=== PATIENT | female | born 1950 | race Caucasian/White ===

== ENCOUNTER 2018-09-28 08:28 | Emergency (ER) | payer OTHER, MEDICAID ==
[2018-09-28] MEDS ORDERED: NS 1,000 ML IV ONE (08:40)
[2018-09-28 08:50] LABS: PLATELET COUNT 315 10^3/uL (150-400)
--- NOTE | 2018-09-28 08:59 | EDPHY ---
H & P Stated Complaint: RLQ pain Time Seen by Provider: 09/28/18 08:31 HPI/ROS: CHIEF COMPLAINT: Abdominal pain and vomiting HISTORY OF PRESENT ILLNESS: The patient presents to the ED with acute right mid abdominal pain and vomiting that began in the middle the night. The patient reported that she felt fine yesterday. She did have some antecedent back pain prior to developing primary symptoms of severe right mid abdominal pain. The patient had a sensation that she needed to have a bowel movement. She also had a sensation that she needed to urinate. The patient has no prior history of the symptoms. The patient rates her pain is a 10/10. She reports associated retching and vomiting with her symptoms. The patient has no prior history of kidney stones. She denies additional acute complaints. REVIEW OF SYSTEMS: A comprehensive 10 point review of systems is otherwise negative aside from elements mentioned in the history of present illness. Source: Patient Exam Limitations: No limitations - Medical/Surgical History Hx Asthma: No Hx Chronic Respiratory Disease: No Hx Diabetes: No Hx Cardiac Disease: No Hx Renal Disease: No Hx Cirrhosis: No Hx Alcoholism: No Hx HIV/AIDS: No Hx Splenectomy or Spleen Trauma: No Other PMH: none reported - Social History Smoking Status: Never smoked - Physical Exam Exam: General Appearance: Alert, appears uncomfortable, retching, writhing Eyes: Pupils equal and round no pallor or injection ENT, Mouth: Mucous membranes moist Respiratory: There are no retractions, lungs are clear to auscultation Cardiovascular: Regular rate and rhythm Gastrointestinal: Tenderness to palpation right mid quadrant, significant right CVA tenderness noted on exam Neurological: 5/5 strength all 4 extremities Skin: Warm and dry, no rashes Musculoskeletal: Neck is supple nontender Extremities: symmetrical, full range of motion Constitutional: Initial Vital Signs Temperature (C) 36.4 C 09/28/18 08:28 Heart Rate 55 L 09/28/18 08:28 Respiratory Rate 18 09/28/18 08:28 Blood Pressure 160/71 H 09/28/18 08:28 O2 Sat (%) 100 09/28/18 08:28 O2 Delivery Mode Room Air O2 (L/minute) 2 Allergies/Adverse Reactions: No Known Allergies Allergy (Unverified 09/28/18 08:43) Home Medications: Medication Instructions Recorded Hydrocodone/APAP 5/325 [[place] 1 - 2 each PO Q6 PRN #20 tab 03/24/19 5/325] Ondansetron Odt [Zofran Odt] 4 mg PO Q4PRN PRN #20 tab 09/28/18 Tamsulosin HCl [Flomax] 0.4 mg PO DAILY PRN #5 cap 09/28/18 Medical Decision Making - Diagnostics Imaging Results: Imaging Impressions Abdomen/Pelvis CT 09/28/18 08:56 Impression: 1. Mild right-sided hydronephrosis secondary to a 2 mm distal right ureteral calculus about 2 cm above the UVJ. 2. Hypodense lesion left lobe liver lateral segment near the dome that is indeterminate. There are no prior imaging studies available for comparison, consider correlation with right upper quadrant ultrasound at some point. 3. Mild to moderate hiatal hernia. Attention: This CT examination is specifically designed to evaluate patients who are clinically suspected of having acute obstructive uropathy. This examination does not use radiographic contrast, and as such, provides only a limited evaluation of the abdomen, pelvis and retroperitoneum. If there is further clinical suspicion for pathological conditions other than obstructive uropathy, a complete CT evaluation of the abdomen and pelvis utilizing intravenous and oral contrast should be considered. Findings discussed with David Thompson at 10:18 hour, 09/28/2018. Right upper quadrant ultrasound: Images reviewed by myself and discussed with radiologist Dr. Mancilla. Simple cyst is noted in the liver. ED Course/Re-evaluation: ED course: Patient presents to the ED via ambulance with acute abdominal pain and vomiting. The patient received Zofran and fentanyl prior to arrival. Patient is market right CVA tenderness and right mid abdominal tenderness noted on exam. She is hemodynamically stable and neurologically intact upon arrival. The patient received additional IV fluids in the emergency department. The patient was taken for a stat noncontrast CT scan of the abdomen pelvis for further evaluation of her acute abdominal pain. Ct scan demonstrates a 2 mm distal right ureteral stone resulting in moderate hydronephrosis. Hypodensity is noted in the left liver of uncertain significance. The patient did not have a primary care provider here in [place] a follow-up ultrasound was done in the emergency department which demonstrated a simple liver cyst. The patient was treated with IV Toradol, Flomax, Dilaudid and Zofran. She had 3 serial examinations by myself over a 3 hr period. And she is feeling much better. We have given her customary aftercare instructions and return precautions. Differential Diagnosis: Differential diagnosis considered includes nephrolithiasis, pyelonephritis, appendicitis, cholecystitis, perforation, obstruction - Data Points Laboratory Results: Laboratory Results 09/28/18 08:30 09/28/18 08:30 09/28/18 09/28/18 09/28/18 08:40 08:30 08:30 WBC 10.70 10^3/uL H 10^3/uL (3.80-9.50) RBC 4.71 10^6/uL 10^6/uL (4.18-5.33) Hgb 13.8 g/dL g/dL (12.6-16.3) Hct 40.8 % % (38.0-47.0) MCV 86.6 fL fL (81.5-99.8) MCH 29.3 pg pg (27.9-34.1) MCHC 33.8 g/dL g/dL (32.4-36.7) RDW 12.4 % % (11.5-15.2) Plt Count 315 10^3/uL 10^3/uL (150-400) MPV 10.6 fL fL (8.7-11.7) Neut % (Auto) Not Reported Lymph % (Auto) Not Reported [place] % (Auto) Not Reported Eos % (Auto) Not Reported Baso % (Auto) Not Reported Nucleat RBC Rel Count Not Reported Absolute Neuts (auto) Not Reported Absolute Lymphs (auto) Not Reported Absolute Monos (auto) Not Reported Absolute Eos (auto) Not Reported Absolute Basos (auto) Not Reported Absolute Nucleated RBC Not Reported Immature Gran % Not Reported Seg Neutrophils % 43.0 % % Band Neutrophils % 0.0 % % Lymphocytes % 41.0 % % Monocytes % 9.0 % % Eosinophils % 4.0 % % Basophils % 3.0 % % Metamyelocytes % 0.0 % % Myelocytes % 0.0 % % Promyelocytes % 0.0 % % Blast Cells % 0.0 % % Immature Gran # Not Reported Absolute Seg Neuts 4.60 10^3/uL 10^3/uL (1.70-6.50) Absolute Band Neuts 0.00 10^3/uL 10^3/uL (0.00-0.70) Absolute Lymphocytes 4.39 10^3/uL H 10^3/uL (1.00-3.00) Absolute Monocytes 0.96 10^3/uL H 10^3/uL (0.30-0.80) Absolute Eosinophils 0.43 10^3/uL H 10^3/uL (0.03-0.40) Absolute Basophils 0.32 10^3/uL H 10^3/uL (0.02-0.10) Absolute Metamyelocyte 0.00 10^3/mL 10^3/mL (0.00-0.00) Absolute Myelocytes 0.00 10^3/mL 10^3/mL (0.00-0.00) Absolute Promyelocytes 0.00 10^3/uL 10^3/uL (0.00-0.00) Absolute Plasma Cells 0.00 10^3/uL 10^3/uL (0.00-0.00) Nucleated RBCs 0 /100 WBC /100 WBC (0-0) RBC/WBC/PLT Morphology NORMAL (NORMAL) Absolute Blast Cells 0.00 10^3/uL 10^3/uL (0.00-0.00) Plasma Cells % 0.0 % % Platelet Estimate ADEQUATE (ADEQ) Sodium 139 mEq/L mEq/L (135-145) Potassium 3.8 mEq/L mEq/L (3.5-5.2) Chloride 103 mEq/L mEq/L (97-110) Carbon Dioxide 22 mEq/l mEq/l (22-31) Anion Gap 14 mEq/L mEq/L (6-14) BUN 20 mg/dL mg/dL (7-23) Creatinine 0.9 mg/dL mg/dL (0.6-1.0) Estimated GFR > 60 Glucose 166 mg/dL H mg/dL (70-100) Calcium 10.0 mg/dL mg/dL (8.5-10.4) Total Bilirubin 0.4 mg/dL mg/dL (0.1-1.4) Conjugated Bilirubin 0.3 mg/dL mg/dL (0.0-0.5) Unconjugated Bilirubin 0.1 mg/dL mg/dL (0.0-1.1) AST 20 IU/L IU/L (14-46) ALT 28 IU/L IU/L (9-52) Alkaline Phosphatase 100 IU/L IU/L (38-126) Total Protein 7.4 g/dL g/dL (6.3-8.2) Albumin 4.4 g/dL g/dL (3.5-5.0) Lipase 137 IU/L IU/L (23-300) Urine Color YELLOW Urine Appearance HAZY Urine pH 5.0 (5.0-7.5) Ur Specific [place] 1.026 (1.002-1.030) Urine Protein NEGATIVE (NEGATIVE) Urine Ketones TRACE H (NEGATIVE) Urine Blood 3+ H (NEGATIVE) Urine Nitrate NEGATIVE (NEGATIVE) Urine Bilirubin NEGATIVE (NEGATIVE) Urine Urobilinogen NEGATIVE EU EU (0.2-1.0) Ur Leukocyte Esterase NEGATIVE (NEGATIVE) Urine RBC 50-182 /hpf H /hpf (0-3) Urine WBC 3-5 /hpf H /hpf (0-3) Ur Epithelial Cells TRACE /lpf /lpf (NONE-1+) Urine Bacteria 1+ /hpf H /hpf (NONE SEEN) Urine Mucus 1+ /lpf /lpf (NONE-1+) Urine Glucose NEGATIVE (NEGATIVE) Medications Given: Discontinued Medications Hydromorphone HCl (Dilaudid) 1 mg IVP EDNOW ONE Stop: 09/28/18 09:19 Last Admin: 09/28/18 09:22 Dose: Not Given Hydromorphone HCl (Dilaudid) 0.5 mg IVP EDNOW ONE Stop: 09/28/18 11:17 Last Admin: 09/28/18 11:36 Dose: 0.5 mg Sodium Chloride (Ns) 1,000 mls @ 0 mls/hr IV EDNOW ONE; Wide Open PRN Reason: Protocol Stop: 09/28/18 08:41 Last Admin: 09/28/18 09:00 Dose: 1,000 mls Ketorolac Tromethamine (Toradol) 30 mg IVP EDNOW ONE Stop: 09/28/18 09:20 Last Admin: 09/28/18 09:22 Dose: Not Given Ketorolac Tromethamine (Toradol) 30 mg IVP EDNOW ONE Stop: 09/28/18 09:20 Last Admin: 09/28/18 09:20 Dose: 30 mg Ondansetron HCl (Zofran) 4 mg IVP EDNOW ONE Stop: 03/24/19 09:19 Last Admin: 09/28/18 09:22 Dose: 4 mg Ondansetron HCl (Zofran) 4 mg IVP EDNOW ONE Stop: 09/28/18 11:17 Last Admin: 09/28/18 11:36 Dose: 4 mg Tamsulosin HCl (Flomax) 0.4 mg PO EDNOW ONE Stop: 09/28/18 10:21 Last Admin: 09/28/18 10:27 Dose: 0.4 mg Departure - Departure Disposition: Home, Routine, Self-Care Clinical Impression: Kidney stone on right side Condition: Good Instructions: Kidney Stones (ED) Additional Instructions: 1. Take Ibuprofen or Motrin 600 mg by mouth three times a day. 2. [place] as needed for severe pain 3. Flomax as directed 4. Zofran as needed for nausea 5. Strain urine as directed 6. Return to the Emergency Department for intractable pain, fever or vomiting. 7. Followup with the urologist, Dr. Ding, you have been referred to for unimproved symptoms. Referrals: Lux Ding MD [Medical Doctor] - As per Instructions Prescriptions: Hydrocodone/APAP 5/325 [[place] 5/325] 1 - 2 each PO Q6 PRN #20 tab PRN Reason: for pain Ondansetron Odt [Zofran Odt] 4 mg PO Q4PRN PRN #20 tab PRN Reason: For Nausea Tamsulosin HCl [Flomax] 0.4 mg PO DAILY PRN #5 cap PRN Reason: for pain
[2018-09-28] MEDS ORDERED: HYDROmorphONE/DILAUDID 1 MG/ML INJ IVP ONE (09:18)
[2018-09-28] MEDS ORDERED: ONDANSETRON 4 MG/2 ML VIAL IVP ONE ×2 (09:18→11:16)
[2018-09-28] MEDS ORDERED: KETOROLAC 30 MG/1 ML SDV IVP ONE ×2 (09:19)
[2018-09-28] MEDS ORDERED: KETOROLAC 30 MG/1 ML SDV ONE (09:20)
[2018-09-28] MEDS ORDERED: ONDANSETRON 4 MG/2 ML VIAL ONE (09:20)
[2018-09-28] MEDS ORDERED: TAMSULOSIN HCL 0.4 MG CAP PO ONE (10:20)
[2018-09-28] MEDS ORDERED: HYDROmorphONE/DILAUDID 2 MG/ML INJ IVP ONE (11:16)
[2018-09-28 12:04] VITALS: BP 130/72
== END 2018-09-28 12:04 | disposition home or self-care (01) ==
DX: N13.2 Hydronephrosis with renal and ureteral calculous obstruction (principal); K76.89 Other specified diseases of liver; K44.9 Diaphragmatic hernia without obstruction or gangrene; E86.9 Volume depletion, unspecified
CPT/HCPCS: 74176; 76705; 96361; 96374; 96375; 96376; 99285; J1170; J1885; J2405

== ENCOUNTER 2018-09-29 18:58 | Inpatient (IN) | payer OTHER, MEDICAID ==
--- NOTE | 2018-09-29 19:17 | EDPHY ---
H & P Time Seen by Provider: 09/29/18 19:15 HPI/ROS: Chief complaint. Abdominal pain HPI. 68-year-old female was seen yesterday in the emergency department diagnosed with right-sided hydronephrosis secondary to 2 mm distal right ureteral kidney stone. It appears she was comfortable when she was discharged. However she has not been able to keep any fluids down secondary to nausea vomiting. She continues to have right flank pain and has been unable to keep her pain medications down. Pain is in the right back right mid quadrant. She has decreased urination and some cloudy urine as well. No fever however. ROS 10 systems were reviewed and negative with the exception of the elements mentioned in the history of present illness Past Medical/Surgical History: Kidney stones Social History: Single, nonsmoker, no alcohol Smoking Status: Never smoked Physical Exam: General Appearance: Alert well-developed female mild distress vital signs are stable Eyes: Pupils equal and round no pallor or injection. ENT, Mouth: Mucous membranes are moist. Respiratory: There are no retractions, lungs are clear to auscultation. Cardiovascular: Regular rate and rhythm. Gastrointestinal: Abdomen is soft and nontender to palpation, no masses, bowel sounds normal. Patient shows me pain right costovertebral angle and right mid abdominal pain but not worse with palpation Neurological: Awake and alert, sensory and motor exams grossly normal. Skin: Warm and dry, no rashes. Musculoskeletal: Neck is supple nontender. Extremities symmetrical, full range of motion. Psychiatric: Patient is oriented X 3, there is no agitation. Constitutional: Initial Vital Signs Temperature (C) 37.4 C 09/29/18 19:02 Heart Rate 77 09/29/18 19:02 Respiratory Rate 18 09/29/18 19:02 Blood Pressure 154/63 H 09/29/18 19:02 O2 Sat (%) 93 09/29/18 19:02 O2 Delivery Mode Nasal Cannula O2 (L/minute) 2 Allergies/Adverse Reactions: No Known Allergies Allergy (Verified 09/29/18 19:02) Home Medications: Medication Instructions Recorded Hydrocodone/APAP 5/325 [[place] 1 - 2 each PO Q6 PRN #20 tab 09/28/18 5/325] Ondansetron Odt [Zofran Odt] 4 mg PO Q4PRN PRN #20 tab 09/28/18 Tamsulosin HCl [Flomax] 0.4 mg PO DAILY PRN #5 cap 09/28/18 Medical Decision Making - Diagnostics Imaging Results: Imaging Impressions Abdomen/Pelvis CT 09/29/18 21:12 Impression: 1. Persistent distal right ureteral calculus with increase in associated obstructive uropathy. 2. See above report for additional findings. Results called and discussed with MARA BROUSSARD M.D. on 09/29/2018 at 22:25. Noncontrast abdominal and pelvis CT shows the continuing 2 mm stone about 1 cm proximal to the UVJ. Significant hydronephrosis and edema in the perinephric fat. Procedures: IV normal saline. Zofran and Toradol IV ED Course/Re-evaluation: 9:00 p.m. shaking chills nausea increased pain right flank. Tachycardic but no fever. Dilaudid, Phenergan IV. CT ordered. Creatinine is increased from 0.9 yesterday to 1.3 today On re-evaluation pain shins pain is not well controlled. She is given IV Dilaudid and she continues to be quite nauseated so is given IV Phenergan Re-evaluation again at 10:30 p.m. Patient is stable but continuing to have pain. No longer having nausea or vomiting. I consulted discussed the case with Dr. Jewell, hospitalist, who agrees to the admission Differential Diagnosis: 2 mm kidney stone with worsening hydronephrosis. Also worsening renal function going from creatinine yesterday of 0.9-1.3 today. - Data Points Laboratory Results: Laboratory Results 09/29/18 19:15 09/29/18 19:15 09/29/18 09/29/18 19:15 19:15 WBC 10.88 10^3/uL H 10^3/uL (3.80-9.50) RBC 4.31 10^6/uL 10^6/uL (4.18-5.33) Hgb 12.7 g/dL g/dL (12.6-16.3) Hct 39.4 % % (38.0-47.0) MCV 91.4 fL fL (81.5-99.8) MCH 29.5 pg pg (27.9-34.1) MCHC 32.2 g/dL L g/dL (32.4-36.7) RDW 12.7 % % (11.5-15.2) Plt Count 242 10^3/uL 10^3/uL (150-400) MPV 10.1 fL fL (8.7-11.7) Neut % (Auto) 77.5 % H % (39.3-74.2) Lymph % (Auto) 17.6 % % (15.0-45.0) [place] % (Auto) 4.2 % L % (4.5-13.0) Eos % (Auto) 0.1 % L % (0.6-7.6) Baso % (Auto) 0.3 % % (0.3-1.7) Nucleat RBC Rel Count 0.0 % % (0.0-0.2) Absolute Neuts (auto) 8.43 10^3/uL H 10^3/uL (1.70-6.50) Absolute Lymphs (auto) 1.92 10^3/uL 10^3/uL (1.00-3.00) Absolute Monos (auto) 0.46 10^3/uL 10^3/uL (0.30-0.80) Absolute Eos (auto) 0.01 10^3/uL L 10^3/uL (0.03-0.40) Absolute Basos (auto) 0.03 10^3/uL 10^3/uL (0.02-0.10) Absolute Nucleated RBC 0.00 10^3/uL 10^3/uL (0-0.01) Immature Gran % 0.3 % % (0.0-1.1) Immature Gran # 0.03 10^3/uL 10^3/uL (0.00-0.10) Sodium 133 mEq/L L mEq/L (135-145) Potassium 4.0 mEq/L mEq/L (3.5-5.2) Chloride 100 mEq/L mEq/L (97-110) Carbon Dioxide 23 mEq/l mEq/l (22-31) Anion Gap 10 mEq/L mEq/L (6-14) BUN 20 mg/dL mg/dL (7-23) Creatinine 1.3 mg/dL H mg/dL (0.6-1.0) Estimated GFR 41 Glucose 118 mg/dL H mg/dL (70-100) Calcium 9.3 mg/dL mg/dL (8.5-10.4) Medications Given: Discontinued Medications Hydromorphone HCl (Dilaudid) 0.5 mg IVP EDNOW ONE Stop: 09/29/18 21:13 Last Admin: 09/29/18 21:27 Dose: 0.5 mg Sodium Chloride (Ns) 1,000 mls @ 0 mls/hr IV EDNOW ONE; Wide Open PRN Reason: Protocol Stop: 09/29/18 19:23 Last Admin: 09/29/18 19:31 Dose: 1,000 mls Sodium Chloride (Ns) 1,000 mls @ 0 mls/hr IV EDNOW ONE; Wide Open PRN Reason: Protocol Stop: 09/29/18 19:23 Last Admin: 09/29/18 19:31 Dose: 1,000 mls Ketorolac Tromethamine (Toradol) 30 mg IVP EDNOW ONE Stop: 09/29/18 19:23 Last Admin: 09/29/18 19:30 Dose: 30 mg Ondansetron HCl (Zofran) 4 mg IVP EDNOW ONE Stop: 09/29/18 19:23 Last Admin: 09/29/18 19:30 Dose: 4 mg Promethazine HCl (Phenergan) 12.5 mg IVP EDNOW ONE Stop: 09/29/18 21:13 Last Admin: 09/29/18 21:26 Dose: 12.5 mg Departure - Departure Disposition: [facility] Clinical Impression: Renal colic on right side Condition: Fair
[2018-09-29] MEDS ORDERED: ONDANSETRON 4 MG/2 ML VIAL IVP ONE (19:22)
[2018-09-29] MEDS ORDERED: KETOROLAC 30 MG/1 ML SDV IVP ONE (19:22)
[2018-09-29] MEDS ORDERED: NS 1,000 ML IV ONE ×2 (19:22)
[2018-09-29 19:28] LABS: PLATELET COUNT 242 10^3/uL (150-400)
[2018-09-29] MEDS ORDERED: PROMETHAZINE HCL 25 MG/ML INJ IVP ONE (21:12)
[2018-09-29] MEDS ORDERED: HYDROmorphONE/DILAUDID 2 MG/ML INJ IVP ONE (21:12)
[2018-09-29] MEDS ORDERED: PROMETHAZINE HCL 25 MG/ML INJ IVP PRN (22:38)
[2018-09-29] MEDS ORDERED: ONDANSETRON DISINTEGRATING 4 MG TAB PO PRN (22:38)
[2018-09-29] MEDS ORDERED: HYDROmorphONE/DILAUDID 1 MG/ML INJ IVP PRN (22:38)
--- NOTE | 2018-09-30 00:15 | PDGENHP ---
History and Physical - Chief Complaint R flank pain - History of Present Illness 68 yo F presents with R flank pain. This started yesterday and she presented to the ED. Her symptoms improved with fluids and pain medication so she returned home. Today her pain persisted and was severe. She also has been unable to hydrate orally due to nausea and pain. She underwent a CT scan in the ED that demonstrated 2 mm R sided kidney stone. She denies dysuria or fever but has been having chills. She is being admitted for hydration and pain control. Case discussed with ED physician Dr. Borden; records reviewed and summarized above. History Information - Allergies/Home Medication List Allergies/Adverse Reactions: No Known Allergies Allergy (Verified 09/29/18 19:02) I have personally reviewed and updated: family history, medical history - Past Medical History no pertinent PMH - Surgical History Additional surgical history: Cyst removal - Family History Additional family history: Asked, denies - Social History Smoking Status: Never smoked Review of Systems Review of Systems: ROS: 10pt was reviewed & negative except for what was stated in HPI & below Physical Exam Physical Exam: Temp Pulse Resp BP Pulse Ox 37.0 C 80 16 118/68 99 09/30/18 00:00 09/30/18 00:00 09/30/18 00:00 09/30/18 00:00 09/30/18 00:00 Constitutional: appears nourished, uncomfortable Eyes: PERRL, EOMI Ears, Nose, Mouth, Throat: moist mucous membranes, no oral mucosal ulcers Cardiovascular: regular rate and rhythym, no murmur, rub, or gallop Respiratory: no respiratory distress, clear to auscultation Gastrointestinal: normoactive bowel sounds, soft, non-tender abdomen Skin: warm, normal color Musculoskeletal: full muscle strength, no muscle tenderness Neurologic: AAOx3, CN II-XII Intact Psychiatric: interacting appropriately, not anxious Lab Data & Imaging Review 09/29/18 19:15 09/29/18 19:15 WBC 10.88 10^3/uL (3.80-9.50) H 09/29/18 19:15 RBC 4.31 10^6/uL (4.18-5.33) 09/29/18 19:15 Hgb 12.7 g/dL (12.6-16.3) 09/29/18 19:15 Hct 39.4 % (38.0-47.0) 09/29/18 19:15 MCV 91.4 fL (81.5-99.8) 09/29/18 19:15 MCH 29.5 pg (27.9-34.1) 09/29/18 19:15 MCHC 32.2 g/dL (32.4-36.7) L 09/29/18 19:15 RDW 12.7 % (11.5-15.2) 09/29/18 19:15 Plt Count 242 10^3/uL (150-400) 09/29/18 19:15 MPV 10.1 fL (8.7-11.7) 09/29/18 19:15 Neut % (Auto) 77.5 % (39.3-74.2) H 09/29/18 19:15 Lymph % (Auto) 17.6 % (15.0-45.0) 09/29/18 19:15 [place] % (Auto) 4.2 % (4.5-13.0) L 09/29/18 19:15 Eos % (Auto) 0.1 % (0.6-7.6) L 09/29/18 19:15 Baso % (Auto) 0.3 % (0.3-1.7) 09/29/18 19:15 Nucleat RBC Rel Count 0.0 % (0.0-0.2) 09/29/18 19:15 Absolute Neuts (auto) 8.43 10^3/uL (1.70-6.50) H 09/29/18 19:15 Absolute Lymphs (auto) 1.92 10^3/uL (1.00-3.00) 09/29/18 19:15 Absolute Monos (auto) 0.46 10^3/uL (0.30-0.80) 09/29/18 19:15 Absolute Eos (auto) 0.01 10^3/uL (0.03-0.40) L 09/29/18 19:15 Absolute Basos (auto) 0.03 10^3/uL (0.02-0.10) 09/29/18 19:15 Absolute Nucleated RBC 0.00 10^3/uL (0-0.01) 03/25/19 19:15 Immature Gran % 0.3 % (0.0-1.1) 09/29/18 19:15 Immature Gran # 0.03 10^3/uL (0.00-0.10) 09/29/18 19:15 Sodium 133 mEq/L (135-145) L 09/29/18 19:15 Potassium 4.0 mEq/L (3.5-5.2) 09/29/18 19:15 Chloride 100 mEq/L (97-110) 09/29/18 19:15 Carbon Dioxide 23 mEq/l (22-31) 09/29/18 19:15 Anion Gap 10 mEq/L (6-14) 09/29/18 19:15 BUN 20 mg/dL (7-23) 09/29/18 19:15 Creatinine 1.3 mg/dL (0.6-1.0) H 09/29/18 19:15 Estimated GFR 41 09/29/18 19:15 Glucose 118 mg/dL (70-100) H 09/29/18 19:15 Calcium 9.3 mg/dL (8.5-10.4) 09/29/18 19:15 Imaging Review: Imaging Impressions Abdomen/Pelvis CT 09/29/18 21:12 Impression: 1. Persistent distal right ureteral calculus with increase in associated obstructive uropathy. 2. See above report for additional findings. Results called and discussed with MARA BORDEN M.D. on 09/29/2018 at 22:25. Assessment & Plan Assessment: 68 yo F presents with flank pain due to urolithiasis. Plan: 1. Urolithiasis - CT (personally reviewed/interpreted) demonstrates persistent distal right ureteral calculus with increase in associated obstructive uropathy. She has been unable to hydrate at home due to nausea. Stone is 2 mm so I suspect it will pass without surgical intervention. - Admit for observation - NS @ 150 mls/hr - Tamsulosin qD - Pain control, anti-emetics PRN - UA to rule out infection ordered 2. OPAL - Serum creatinine 1.3 on admission increased from normal baseline. This is likely prerenal azotemia from dehydration. - IVF - Repeat BMP in the morning 3. Hyponatremia - Mild, likely hypovolemic. - Recheck after IVF Diet - Regular Code - Full Ppx - LMWH Dispo - Admit under observation status
[2018-09-30] MEDS: ACETAMINOPHEN 325 MG TAB PO PRN ×4 (01:32→21:35)
[2018-09-30] MEDS: ONDANSETRON 4 MG/2 ML VIAL IVP PRN ×2 (01:33→05:45)
[2018-09-30] MEDS: NS 1,000 ML IV SCH ×4 (01:35→18:23)
[2018-09-30 05:44] LABS: PLATELET COUNT 139 10^3/uL (150-400)
[2018-09-30] MEDS ORDERED: NS 1,000 ML IV ONE (08:52)
[2018-09-30] MEDS: ENOXAPARIN 40 MG/0.4 ML SYR SC SCH (09:32)
[2018-09-30] MEDS: TAMSULOSIN HCL 0.4 MG CAP PO SCH (09:55)
[2018-09-30 11:14] LABS: INR 1.44 (0.83-1.16); PROTIME(PATIENT) 16.9 SEC (12.0-15.0)
--- NOTE | 2018-09-30 12:08 | ASMTCMCOM ---
CM Note CM Note Notes: 09/30/2018 Case Management Note Discussed pt during rounds this morning. Pt admitted for 2 mm right kidney stone and pain management. Per RN report, pt is septic today and on sepsis protocol. Deferred meeting pt until pt feeling better. PT deferred eval as well. Pt is employed and has friend support. PCP is Dr. Mccracken. Case Management d/c poc: to be determined. Case Management to follow. Date Signed: 09/30/2018 12:08 PM Electronically Signed By:Sherin Sheppard RN
--- NOTE | 2018-09-30 12:20 | HOSPPROG ---
Hospitalist Progress Note Assessment/Plan: The patient is a 68-year-old female who was admitted for intractable pain secondary to R sided hydronephrosis and ureterolithiasis. ASSESSMENT/PLAN: Severe sepsis SOFA score < 9 Acute UTI Acute R uretherolithisis R hydronephrosis Acute dehydration, 2/2 above OPAL, 2/2 above Hyponatremia, mild Acute metabolic/toxic encephalopathy, 2/2 above -Initiated sepsis protocol this AM. -Gave pt another bolus NS this AM, followed by maintenance IVF. -Started ceftriaxone for suspected UTI a/w stone. -Blood Cx pending. -Urine Cx pending. -Check AM labs. -Consider Urology consult if stone does not pass. It is very small and expected to pass. -Continue Flomax. -prn analgesics --Toradol preferred since pt is lethargic. VTE prophylaxis: Lovenox. Code Status: Full Status: change to inpt for > 2 midnight stay for severe sepsis, OPAL, hydronephrosis, and medical instability -- needs IVF, antibiotics, and ongoing support. [facility]___ SUBJECTIVE: Notified this AM that pt was septic -- saw pt who was febrile, tachycardic, tachypneic, altered. Pt said she felt badly but was unable to explain further. OBJECTIVE: Physical Exam: General: The patient is a female who is lethargic and in mild acute distress. HEENT: normocephalic, extraocular movements intact, conjunctivae clear. Mucous membranes very dry. Neck: trachea midline, no visible masses. CV: +S1/S2, tachy rate, RR, no MRG. Resp: unlabored, CTAB no RRW. Abd: soft and nondistended. Diffusely tender. Musculoskeletal: Normal muscle tone/bulk. Neuro: cranial nerves II - XII grossly intact. Pt unable to verbalize/ communicate. Pt unable to follow commands. Psych: unable to assess. Skin: No pallor. No petechiae. Heme/lymph: No peripheral edema at bilateral lower legs. Labs/Imaging/Other Tests: Personally reviewed/interpreted. CT abd/pelv w/o contrast: Persistent distal right ureteral calculus with increase in associated obstructive uropathy. Objective: Vital Signs Temp Pulse Resp BP Pulse Ox 39.3 C H 120 H 24 H 125/60 H 96 09/30/18 11:34 09/30/18 11:34 09/30/18 11:34 09/30/18 11:34 09/30/18 11:34 Laboratory Results 09/30/18 04:50 09/30/18 04:50 09/29/18 09/30/18 10/01/18 05:59 05:59 05:59 Intake Total 2808 Balance 2808 PT 16.9 SEC (12.0-15.0) H 09/30/18 10:30 INR 1.44 (0.83-1.16) H 09/30/18 10:30 - Time Spent With Patient Time Spent with Patient: greater than 35 minutes Time Spent with Patient: Greater than 35 minutes spent on this patients care, greater than 50% of time spent counseling, educating, and coordinating care regarding the above mentioned plan. ICD10 Worksheet Patient Problems: Problems Problem Status Onset Renal colic on right side Acute
[2018-09-30] MEDS ORDERED: KETOROLAC 30 MG/1 ML SDV IVP PRN (12:58)
--- NOTE | 2018-09-30 19:57 | PDMN ---
Medical Necessity Medical necessity: Change to IP, as of 09/30/18, per & MCG M-160; los >2 mn for ongoing management of severe sepsis w/acute UTI, R ureterolithiasis, R hydronephrosis, acute kidney injury & metabolic/toxic encephalopathy; requiring further monitoring, aggressive IVFs (150 mls/hr) & IV abx
[2018-10-01 05:10] LABS: PLATELET COUNT 95 10^3/uL (150-400)
[2018-10-01] MEDS: ENOXAPARIN 40 MG/0.4 ML SYR SC SCH (08:35)
[2018-10-01] MEDS: TAMSULOSIN HCL 0.4 MG CAP PO SCH (08:35)
[2018-10-01] MEDS: NS 1,000 ML IV SCH ×2 (14:18→21:18)
[2018-10-01] MEDS: oxyCODONE IR 5 MG TAB PO PRN ×2 (14:26→20:19)
--- NOTE | 2018-10-01 16:15 | HOSPPROG ---
Hospitalist Progress Note Assessment/Plan: Patient is a 68-year-old female who was admitted for intractable pain secondary to R sided hydronephrosis and ureterolithiasis. ASSESSMENT/PLAN: Severe sepsis SOFA score < 9 Acute UTI Acute R uretherolithisis R hydronephrosis Acute dehydration, 2/2 above OPAL, 2/2 above Hyponatremia, mild Acute metabolic/toxic encephalopathy, 2/2 above cont IV abx decrease IVF trend PC improving overal f/u cultures -Continue Flomax. VTE prophylaxis: Lovenox. Code Status: Full Status: change to inpt for > 2 midnight stay for severe sepsis, OPAL, hydronephrosis, and medical instability -- needs IVF, antibiotics, and ongoing support. Disposition: medsurg Subjective: feels somewhat better. denies cp or sob. voiding Objective: Vital Signs Temp Pulse Resp BP Pulse Ox 36.3 C 82 16 109/64 97 10/01/18 11:19 10/01/18 11:19 10/01/18 11:19 10/01/18 11:19 10/01/18 11:19 Laboratory Results 10/01/18 04:58 10/01/18 04:58 09/30/18 10/01/18 10/02/18 05:59 05:59 05:59 Intake Total 3625 Output Total 400 150 Balance 3225 -150 PT 16.9 SEC (12.0-15.0) H 09/30/18 10:30 INR 1.44 (0.83-1.16) H 09/30/18 10:30 - Physical Exam Constitutional: no apparent distress Eyes: PERRL Ears, Nose, Mouth, Throat: moist mucous membranes Cardiovascular: regular rate and rhythym, No edema Respiratory: no respiratory distress, no rales or rhonchi, clear to auscultation Gastrointestinal: normoactive bowel sounds, soft, non-tender abdomen Skin: warm Musculoskeletal: generalized weakness Neurologic: AAOx3 Psychiatric: interacting appropriately, not anxious, not encephalopathic Lymph, Heme, Immunologic: No petechiae ICD10 Worksheet Patient Problems: Problems Problem Status Onset Renal colic on right side Acute
[2018-10-01] MEDS: ONDANSETRON 4 MG/2 ML VIAL IVP PRN (20:22)
[2018-10-02 05:25] LABS: PLATELET COUNT 104 10^3/uL (150-400)
[2018-10-02] MEDS: ENOXAPARIN 40 MG/0.4 ML SYR SC SCH (08:45)
[2018-10-02] MEDS: TAMSULOSIN HCL 0.4 MG CAP PO SCH (08:45)
[2018-10-02] MEDS: ONDANSETRON 4 MG/2 ML VIAL IVP PRN ×2 (08:46→18:09)
--- NOTE | 2018-10-02 09:59 | CPEKG ---
Test Reason : chest pain Blood Pressure : / mmHG Vent. Rate : 091 BPM Atrial Rate : 091 BPM P-R Int : 144 ms QRS Dur : 082 ms QT Int : 350 ms P-R-T Axes : 057 051 020 degrees QTc Int : 431 ms Sinus rhythm Confirmed by Lux Franco ([id number]) on 10/02/2018 9:58:38 AM Referred By: Mario Jewell Confirmed By:Lux Franco
--- NOTE | 2018-10-02 13:09 | HOSPPROG ---
Hospitalist Progress Note Assessment/Plan: Patient is a 68-year-old female who was admitted for intractable pain secondary to R sided hydronephrosis and ureterolithiasis. ASSESSMENT/PLAN: Severe sepsis SOFA score < 9 Acute UTI Acute R uretherolithisis R hydronephrosis Acute dehydration, 2/2 above OPAL, 2/2 above Hyponatremia, mild Acute metabolic/toxic encephalopathy, 2/2 above cont IV abx trial off IVF PC cont to be elevated but improving, she feels significantly better f/u cultures Continue Flomax. VTE prophylaxis: Lovenox. Code Status: Full Status: cont inpt for > 2 midnight stay for severe sepsis, OPAL, hydronephrosis, and medical instability -- needs IVF, antibiotics, and ongoing support. Disposition: medsur Subjective: no cp or sob. no n/v. still with mild abd pain, feels better overall. Last fever is 09/30 at 1999 Objective: Vital Signs Temp Pulse Resp BP Pulse Ox 37.1 C 93 16 130/75 H 89 L 10/02/18 12:22 10/02/18 12:22 10/02/18 12:22 10/02/18 12:22 10/02/18 12:22 Laboratory Results 10/02/18 04:54 10/02/18 04:54 10/01/18 10/02/18 10/03/18 05:59 05:59 05:59 Intake Total 3625 2139 1700 Output Total 400 950 Balance 3225 1189 1700 PT 16.9 SEC (12.0-15.0) H 09/30/18 10:30 INR 1.44 (0.83-1.16) H 09/30/18 10:30 - Physical Exam Constitutional: no apparent distress Eyes: PERRL, EOMI Ears, Nose, Mouth, Throat: moist mucous membranes, hearing normal Cardiovascular: regular rate and rhythym, No edema Respiratory: no respiratory distress, no rales or rhonchi, clear to auscultation Gastrointestinal: normoactive bowel sounds, soft, non-tender abdomen Skin: warm Neurologic: AAOx3 Psychiatric: interacting appropriately, not anxious, not encephalopathic Lymph, Heme, Immunologic: No petechiae ICD10 Worksheet Patient Problems: Problems Problem Status Onset Renal colic on right side Acute
--- NOTE | 2018-10-02 16:09 | ASMTCMCOM ---
CM Note CM Note Notes: CM reviewed pts chart. PT has cleared pt to discharge home without any needs. CM available for changes. Plan: Independent Date Signed: 10/02/2018 04:08 PM Electronically Signed By:BRANDON Acosta
[2018-10-02] MEDS: oxyCODONE IR 5 MG TAB PO PRN (19:33)
[2018-10-03 04:50] LABS: PLATELET COUNT 129 10^3/uL (150-400)
[2018-10-03] MEDS: TAMSULOSIN HCL 0.4 MG CAP PO SCH (08:36)
[2018-10-03] MEDS: ENOXAPARIN 40 MG/0.4 ML SYR SC SCH (08:36)
[2018-10-03] MEDS ORDERED: FUROSEMIDE 20 MG/2 ML VIAL IVP ONE (12:13)
--- NOTE | 2018-10-03 15:14 | ASMTCMCOM ---
CM Note CM Note Notes: Patient plan of care reviewed in am rounds. She is a 68 year old female who passed a kidney fredi. No needs identified at present time. To get diuretic today. Plan: Dc independently tomorrow. Date Signed: 10/03/2018 03:13 PM Electronically Signed By:Mary Soares RN
--- NOTE | 2018-10-03 17:47 | HOSPPROG ---
Hospitalist Progress Note Assessment/Plan: Patient is a 68-year-old female who was admitted for intractable pain secondary to R sided hydronephrosis and ureterolithiasis. ASSESSMENT/PLAN: Severe sepsis, resolved SOFA score < 9 Acute UTI Acute R uretherolithisis, stone has vacated R hydronephrosis Acute dehydration, 2/2 above, resolved OPAL, 2/2 above, resolved Hyponatremia, mild, resolved Acute metabolic/toxic encephalopathy, 2/2 above, resoled Pedal Edema cont IV abx cont off IVF Lasix x 1 f/u cultures Continue Flomax. PT VTE prophylaxis: Lovenox. Code Status: Full Status: cont inpt Disposition: medsurg Subjective: no cp or sob. feel weak. afebrile. better overall Objective: Vital Signs Temp Pulse Resp BP Pulse Ox 36.9 C 75 16 135/68 H 95 10/03/18 15:11 10/03/18 15:11 10/03/18 15:11 10/03/18 15:11 10/03/18 15:11 Laboratory Results 10/03/18 04:25 10/02/18 04:54 10/02/18 10/03/18 10/04/18 05:59 05:59 05:59 Intake Total 2139 2500 Output Total 950 850 500 Balance 1189 1650 -500 PT 16.9 SEC (12.0-15.0) H 09/30/18 10:30 INR 1.44 (0.83-1.16) H 09/30/18 10:30 - Physical Exam Constitutional: no apparent distress Eyes: PERRL Ears, Nose, Mouth, Throat: moist mucous membranes, hearing normal Cardiovascular: regular rate and rhythym, edema Respiratory: no respiratory distress, no rales or rhonchi, clear to auscultation Gastrointestinal: normoactive bowel sounds Skin: warm Musculoskeletal: generalized weakness Neurologic: AAOx3 Psychiatric: interacting appropriately, not anxious, not encephalopathic Lymph, Heme, Immunologic: No petechiae ICD10 Worksheet Patient Problems: Problems Problem Status Onset Renal colic on right side Acute
[2018-10-04] MEDS: oxyCODONE IR 5 MG TAB PO PRN (00:13)
[2018-10-04] MEDS ORDERED: ZOLPIDEM TARTRATE 5 MG TAB PO ONE (00:26)
[2018-10-04] MEDS: TAMSULOSIN HCL 0.4 MG CAP PO SCH (08:45)
[2018-10-04] MEDS: ENOXAPARIN 40 MG/0.4 ML SYR SC SCH (08:45)
[2018-10-04 12:19] VITALS: BP 123/75
[2018-10-04] MEDS ORDERED: FUROSEMIDE 20 MG TAB PO ONE (13:24)
--- NOTE | 2018-10-04 13:30 | PDDCSUM ---
Discharge Summary Discharge Summary: HPI/Hospital course: Patient is a 68-year-old female who was admitted for intractable pain secondary to R sided hydronephrosis and ureterolithiasis. she was found to have severe sepsis and treated with IV fluids and IV abx. She eventually passed the stone. She is now significantly better. See details below DDx: Severe sepsis, resolved SOFA score < 9 Acute UTI: treated with Rocephin. Now transitioned to Omnicef x 3 more days Acute R uretherolithisis, stone has vacated R hydronephrosis Acute dehydration, 2/2 above, resolved OPAL, 2/2 above, resolved Hyponatremia, mild, resolved Acute metabolic/toxic encephalopathy, 2/2 above, resoled Pedal Edema, resolved Exam: NAD RRR CTA B MEDS: SEE MED REC F/U: WITH PCP NEXT WEEK TOTAL TIME SPENT ON D/C IS 35 MINS
--- NOTE | 2018-10-04 13:44 | ASMTLACE ---
WILLIE Length of stay for Answers: 4-6 days current admission # of Emergency department Answers: 1-2 visits in the last 6 months Score: 5 Date Signed: 10/04/2018 01:43 PM Electronically Signed By:Mary Soares RN
--- NOTE | 2018-10-04 13:48 | ASMTDCNOTE ---
Case Management Discharge Discharge Order Complete? Answers: Yes Patient to Obtain Answers: Independently Medications Transportation Arranged Answers: Family/Friends Family Notified Answers: Yes Discharge Comments Notes: Patient medically cleared for independent discharge to home. CM avialable should needs arise. Date Signed: 10/04/2018 01:47 PM Electronically Signed By:Mary Soares RN
== END 2018-10-04 15:00 | disposition home or self-care (01) | DRG 871 ==
LOC: F1N 09-30 00:38 → OBSVTOIN 09-30 13:00
PROVIDERS: ADMIT Student in an Organized Health Care Education/Training Program; ATTEND Student in an Organized Health Care Education/Training Program
DX: A41.9 Sepsis, unspecified organism (principal); G92 Toxic encephalopathy; N13.6 Pyonephrosis; N17.8 Other acute kidney failure; E87.1 Hypo-osmolality and hyponatremia; R65.20 Severe sepsis without septic shock; E86.0 Dehydration
CPT/HCPCS: 82365-90; 96374; 97116-GP; 97161-GP; G0378; J0696; J1170; J1650; J1885; J1940; J2405; J2550